=== PATIENT | male | born 1935 | race Hispanic/Latino ===

== ENCOUNTER 2018-01-04 09:15 | Inpatient (IN) | payer MEDICARE ==
--- NOTE | 2018-01-04 09:35 | ED PDOC ---
Arrival/HPI - General Chief Complaint: Weakness/Neurological Deficit Time Seen by Provider: 01/04/18 09:29 Historian: Patient, Family (Son) - History of Present Illness Narrative History of Present Illness (Text): 01/04/18 10:09 82 y/o male with no significant PMH presents to the ED with son c/o bilateral leg pain and increased confusion over the last 4 days. Patient describes leg discomfort as a "heaviness" with paresthesias and pain in the ankles and feet. Pt states the pain is chronic, but has worsened over the last 4 days. Followed by [facility] associated with Dr. Carrasco. Prescribed Methylprednisolone 4mg daily for the leg pain last week but pt has not taken the medication yet. Per the son, patient has been confused since yesterday morning, repeating phrases, and missing his mouth while eating dinner. Pt is having difficulty walking, unsure if secondary to pain or difficulty with balance. Took tylenol for pain yesterday without relief. No pain now, just "heaviness and tingling". Denies trauma/falls, headache, dizziness, weakness, numbness, paresthesias, fevers, chills, SOB, chest pain, cough, back pain, bowel/bladder incontinence, saddle anesthesia, calf swelling, calf tenderness, abdominal pain, N/V/D, dysuria, or any other associated symptoms. Past Medical History - Cardiac Hx Cardiac Disorders: No - Pulmonary Hx Respiratory Disorders: No - Neurological Hx Neurological Disorder: No - HEENT Hx HEENT Disorder: No - Renal Hx Renal Disorder: No - Hematological/Oncological Hx Blood Disorders: No - Integumentary Hx Dermatological Disorder: No - Musculoskeletal/Rheumatological Hx Back Pain: Yes - Psychiatric Hx Substance Use: No Family/Social History - Physician Review Nursing Documentation Reviewed: Yes Family/Social History: No Known Family HX Smoking Status: Smoker Currrent Status Unknown Hx Alcohol Use: Yes Frequency of alcohol use: Socially Hx Substance Use: No Allergies/Home Meds Allergies/Adverse Reactions: Allergies No Known Allergies Allergy (Verified 01/04/18 09:27) Home Medications: Home Meds Medication Instructions Recorded Confirmed Methylprednisolone [Medrol] 4 mg PO DAILY 01/04/18 01/04/18 Naproxen [Naprosyn] 500 mg PO Q12 01/04/18 01/04/18 Omeprazole Magnesium [Prilosec Otc] 20 mg PO DAILY 01/04/18 01/04/18 Review of Systems - Physician Review All systems were reviewed & negative as marked: Yes - Review of Systems Constitutional: Normal. absent: Fevers Eyes: Normal. absent: Vision Changes ENT: Normal. absent: Sore Throat, Sinus Congestion Respiratory: Normal. absent: SOB, Cough Cardiovascular: Normal. absent: Chest Pain, Palpitations, Syncope Gastrointestinal: Normal. absent: Abdominal Pain, Nausea, Vomiting Genitourinary Male: Normal. absent: Dysuria, Frequency Musculoskeletal: Arthralgias (bilateral legs). absent: Back Pain Skin: Normal. absent: Rash, Skin Lesions Neurological: Gait Changes. absent: Headache, Dizziness, Focal Weakness, Speech Changes, Facial Droop, Seizure Endocrine: Normal Hemo/Lymphatic: Normal Psychiatric: Normal Physical Exam Vital Signs Reviewed: Yes Temperature: Afebrile Blood Pressure: Normal Pulse: Regular Respiratory Rate: Normal Appearance: Positive for: Well-Appearing, Non-Toxic, Comfortable Pain Distress: None Mental Status: Positive for: Alert and Oriented X 3 - Systems Exam Head: Present: Atraumatic, Normocephalic. No: Contusion Pupils: Present: PERRL Extroacular Muscles: Present: EOMI Conjunctiva: Present: Normal Mouth: Present: Moist Mucous Membranes Neck: Present: Normal Range of Motion Respiratory/Chest: Present: Clear to Auscultation, Good Air Exchange. No: Respiratory Distress, Accessory Muscle Use Cardiovascular: Present: Regular Rate and Rhythm, Normal S1, S2. No: Murmurs Abdomen: No: Tenderness, Distention, Peritoneal Signs Back: Present: Normal Inspection Upper Extremity: Present: Normal Inspection, Normal ROM, NORMAL PULSES, Neurovascularly Intact, Capillary Refill < 2s. No: Cyanosis, Edema Lower Extremity: Present: Normal Inspection, NORMAL PULSES, Normal ROM, Neurovascularly Intact, Capillary Refill < 2 s, Other (subjective paresthesias to bilateral feet and ankles; sensation to light touch equal bilaterally). No: Edema, Tenderness, Swelling, Deformity, Temperature Abnormalties Neurological: Present: GCS=15, CN II-XII Intact (Difficulty following finger on testing of EOMI, bilaterally), Speech Normal, Motor Func Grossly Intact, Normal Sensory Function, Normal Cerebellar Funct, Gait Normal, Memory Normal Skin: Present: Warm, Dry, Normal Color. No: Rashes Psychiatric: Present: Alert, Oriented x 3, Normal Insight, Normal Concentration Medical Decision Making ED Course and Treatment: 09:35 Initial Plan: * CBC, CMP * Ammonia * Troponin * UA, culture * Head CT * Bilateral Lower Extremity Duplex * EKG * CXR Case discussed with Dr. Grant, who agrees with plan of care and recommends bilateral lower extremity duplex over any lumbar spine imaging at this time. CBC: Hgb 12.1, patient asymptomatic, no acute intervention necessary, otherwise wnl CMP: wnl Ammonia: wnl Troponin: neg UA: wnl Head CT: negative Duplex: negative for DVT CXR: no active disease Will admit patient for inpatient observation and further evaluation of leg pain and altered mental status. Discussed plan of care with patient and family, who agree and understand the necessity of inpatient observation. 12:[address] Marta Santiago, who accepted patient for inpatient observation for altered mental status and bilateral lower extremity pain. Impression: Bilateral Leg Pain Altered Mental Status - Lab Interpretations Narrative Lab Interpretation (Text): 01/04/18 19:36 01/04/18 10:25 01/04/18 10:25 Lab Results 01/04/18 10:25: PT 12.1, INR 1.05, APTT 26.8 01/04/18 10:25: Ammonia < 9 L 01/04/18 10:25: WBC 6.2, RBC 4.09, Hgb 12.1 L, Hct 36.9 L, MCV 90.2, MCH 29.6, MCHC 32.8, RDW 14.3, Plt Count 188, MPV 9.2, Gran % 65.5, Lymph % (Auto) 20.0 L, [place] % (Auto) 9.6 H, Eos % (Auto) 4.4, Baso % (Auto) 0.5, Gran # 4.04, Lymph # (Auto) 1.2, [place] # (Auto) 0.6, Eos # (Auto) 0.3, Baso # (Auto) 0.03 01/04/18 10:25: Sodium 137, Potassium 4.5, Chloride 106, Carbon Dioxide 27, Anion Gap 8 L, BUN 18, Creatinine 0.9, Est GFR ( Amer) > 60, Est GFR (Non-Af Amer) > 60, Random Glucose 104, Calcium 8.9, Total Bilirubin 0.8, AST 21, ALT 26, Alkaline Phosphatase 87, Total Creatine Kinase 85, Troponin I < 0.01, Total Protein 6.6, Albumin 3.7, Globulin 2.8, Albumin/Globulin Ratio 1.3 01/04/18 09:37: POC Glucose (mg/dL) 98 I have reviewed the lab results: Yes - RAD Interpretation Narrative RAD Interpretations (Text): 01/04/18 12:[address]: FINDINGS: HEMORRHAGE: No intracranial hemorrhage. BRAIN: No mass effect or edema. Chronic microvascular changes are seen as well as mild atrophy. No acute findings VENTRICLES: Unremarkable. No hydrocephalus. CALVARIUM: Unremarkable. PARANASAL SINUSES: Unremarkable as visualized. No significant inflammatory changes. MASTOID AIR CELLS: Unremarkable as visualized. No inflammatory changes. OTHER FINDINGS: None. IMPRESSION: No acute intracranial findings CXR: FINDINGS: LUNGS: No active pulmonary disease. PLEURA: No significant pleural effusion identified, no pneumothorax apparent. CARDIOVASCULAR: No aortic atherosclerotic calcification present. Normal cardiac size. No pulmonary vascular congestion. OSSEOUS STRUCTURES: No significant abnormalities. VISUALIZED UPPER ABDOMEN: Normal. OTHER FINDINGS: None. IMPRESSION: No active disease. Bilateral Venous Duplex Lower Extremity: FINDINGS: The visualized deep venous systems of both lower extremities are sonographically normal and compressible. Normal wave forms and augmentation are seen. There is no sonographic evidence for deep venous thrombosis in the visualized segments of both lower extremities. IMPRESSION: No sonographic evidence for deep venous thrombosis in the visualized segments of both lower extremities. [place]: Radiologist - EKG Interpretation EKG Interpretation (Text): 01/04/18 12:02 rate 70; NSR; normal interval; no ST elevations/depressions, T wave inversions, or other signs of ischemia Interpreted by ED Physician: Yes Type: 12 lead EKG Disposition/Present on Arrival - Present on Arrival Any Indicators Present on Arrival: No History of DVT/PE: No History of Uncontrolled Diabetes: No Urinary Catheter: No History of Decub. Ulcer: No History Surgical Site Infection Following: None - Disposition Have Diagnosis and Disposition been Completed?: Yes Diagnosis: Numbness and tingling of both legs, Altered mental status Disposition: HOSPITALIZED Disposition Time: 11:55 Patient Problems: Current Active Problems Problem Status Onset Numbness and tingling of both legs Acute Condition: STABLE
[2018-01-04 10:44] LABS: BASO # 0.03 K/mm3 (0.0-2.0); BASO % 0.5 % (0.0-3.0); EOS # 0.3 (0.0-0.7); EOS % 4.4 % (1.5-5.0); GRAN # 4.04 (1.4-6.5); GRAN % 65.5 % (50.0-68.0); HEMOGLOBIN 12.1 g/dL (14.0-18.0); LYMPH # 1.2 (1.2-3.4); MEAN CELL VOLUME 90.2 fl (80.0-105.0); MEAN CORPUSCULAR HEMOGLOBIN 29.6 pg (25.0-35.0); MEAN CORPUSCULAR HGB CONC 32.8 g/dl (31.0-37.0); MEAN PLATELET VOLUME 9.2 fl (7.0-11.0); MONO # 0.6 (0.1-0.6); MONO % 9.6 % (1.0-6.0); RBC 4.09 10^6/uL (3.5-6.1); RED CELL DISTRIBUTION WIDTH 14.3 % (11.5-14.5); WHITE BLOOD COUNT 6.2 10^3/uL (4.5-11.0)
[2018-01-04 10:45] LABS: ALB/GLOB RATIO 1.3 (1.1-1.8); ALBUMIN 3.7 g/dL (3.0-4.8); ALT/SGPT 26 U/L (7-56); AST/SGOT 21 U/L (17-59); BLOOD UREA NITROGEN 18 mg/dL (7-21); CALCIUM 8.9 mg/dL (8.4-10.5); GFR NON-AFRICAN AMERICAN > 60
[2018-01-04 10:57] LABS: TROPONIN I < 0.01 ng/mL
[2018-01-04 10:58] LABS: INR 1.05; PARTIAL THROMBOPLASTIN TIME 26.8 Seconds (25.1-36.5); PROTHROMBIN TIME 12.1 SECONDS (9.4-12.5)
--- NOTE | 2018-01-04 11:14 | US ---
HISTORY: Leg pain and swelling. Evaluate for DVT PHYSICIAN(S): Ray Burleson MD. TECHNIQUE: Duplex sonography and color-flow Doppler with graded compression were used to evaluate the deep venous systems of both lower extremities. FINDINGS: The visualized deep venous systems of both lower extremities are sonographically normal and compressible. Normal wave forms and augmentation are seen. There is no sonographic evidence for deep venous thrombosis in the visualized segments of both lower extremities. IMPRESSION: No sonographic evidence for deep venous thrombosis in the visualized segments of both lower extremities.
--- NOTE | 2018-01-04 11:34 | CT ---
Date of service: 01/04/2018 PROCEDURE: CT HEAD WITHOUT CONTRAST. HISTORY: altered mental status COMPARISON: None available. TECHNIQUE: Axial computed tomography images were obtained through the head/brain without intravenous contrast. Radiation dose: Total exam DLP = 902.94 mGy-cm. This CT exam was performed using one or more of the following dose reduction techniques: Automated exposure control, adjustment of the mA and/or kV according to patient size, and/or use of iterative reconstruction technique. FINDINGS: HEMORRHAGE: No intracranial hemorrhage. BRAIN: No mass effect or edema. Chronic microvascular changes are seen as well as mild atrophy. No acute findings VENTRICLES: Unremarkable. No hydrocephalus. CALVARIUM: Unremarkable. PARANASAL SINUSES: Unremarkable as visualized. No significant inflammatory changes. MASTOID AIR CELLS: Unremarkable as visualized. No inflammatory changes. OTHER FINDINGS: None. IMPRESSION: No acute intracranial findings
--- NOTE | 2018-01-04 11:39 | RAD ---
Date of service: 01/04/2018 HISTORY: altered mental status COMPARISON: No prior. FINDINGS: LUNGS: No active pulmonary disease. PLEURA: No significant pleural effusion identified, no pneumothorax apparent. CARDIOVASCULAR: No aortic atherosclerotic calcification present. Normal cardiac size. No pulmonary vascular congestion. OSSEOUS STRUCTURES: No significant abnormalities. VISUALIZED UPPER ABDOMEN: Normal. OTHER FINDINGS: None. IMPRESSION: No active disease.
--- NOTE | 2018-01-04 12:56 | CP.PCM.HP ---
<Britt Olivares - Last Filed: 01/04/18 13:33> History of Present Illness - History of Present Illness History of Present Illness: HISTORY & PHYSICAL NOTE FOR HOSPITALIST TEAM Britt Olivares PGY-1 82 y/o M with PMHx of HTN, GERD presents to ED with his with complaints of mild b/l leg tingling and heaviness that has been ongoing for several years around that ankle region, that is constant and non-radiating. He denies associated back pain, or shooting pain down the legs. He has a history "herniated disk surgery" involved his L4-L5 region in 2008 and has noticed the tingling since the surgery. He reports that he has had difficulty walking yesterday causes his kne es to buckle that caused him 7/10 severity pain however he doesn't report any pain currently. He reports he has had unsteady gait recently. He had recently seen his PMD who prescribed him methylprednisolone for the tingling, however he has not taken any of the medication. His son, who is present at bedside reports that pt was very anxious yesterday d/t the tingling and the pt was somewhat confused. Upon interview, son reports confusion has resolved, and patient is at his baseline. Upon interview, pt reports that he still has mild tingling in his ankle region, but doesn't report pain or discomfort. He denies fevers, chills, headache, dizziness, vision changes, urinary/bowel incontinence, numbness, chest pain, palpitations, shortness of breath, nausea, vomiting, constipation, diarrhea, dysuria, hematuria. PMHx: HTN, GERD All: Denies PSH: L4-L5 "herniated disk surgery" SH: Denies smoking, alcohol, illicit drug use Hosp: denies recently FH: Father: melanoma, Mother: denies Meds: Lotrel 5mg/10mg, prilosec, tessalon perles, naproxen, PMD: Dr. Carrasco, seen by HOSPITAL PHARMACY TECHNICIAN Pharmacy: [facility] Present on Admission - Present on Admission Any Indicators Present on Admission: No Review of Systems - Review of Systems Review of Systems: per HPI Past Patient History - Past Social History Smoking Status: Smoker Currrent Status Unknown - CARDIAC Hx Cardiac Disorders: No - PULMONARY Hx Respiratory Disorders: No - NEUROLOGICAL Hx Neurological Disorder: No - HEENT Hx HEENT Problems: No - RENAL Hx Chronic Kidney Disease: No - HEMATOLOGICAL/ONCOLOGICAL Hx Blood Disorders: No - INTEGUMENTARY Hx Dermatological Problems: No - MUSCULOSKELETAL/RHEUMATOLOGICAL Hx Back Pain: Yes - PSYCHIATRIC Hx Substance Use: No Meds Allergies/Adverse Reactions: Allergies Allergy/AdvReac Type Severity Reaction Status Date / Time No Known Allergies Allergy Verified 01/04/18 09:27 Physical Exam - Constitutional Appears: Well, Non-toxic, No Acute Distress - Head Exam Head Exam: NORMAL INSPECTION, NORMOCEPHALIC - Eye Exam Eye Exam: EOMI, Normal appearance - ENT Exam ENT Exam: Mucous Membranes Moist, Normal Exam - Neck Exam Neck exam: Positive for: Normal Inspection. Negative for: Meningismus - Respiratory Exam Respiratory Exam: Clear to Auscultation Bilateral, NORMAL BREATHING PATTERN - Cardiovascular Exam Cardiovascular Exam: REGULAR RHYTHM, +S1, +S2 - GI/Abdominal Exam GI & Abdominal Exam: Normal Bowel Sounds, Soft. absent: Distended - Extremities Exam Extremities exam: Positive for: normal inspection. Negative for: calf tenderness - Back Exam Back exam: NORMAL INSPECTION Additional comments: well healed midline vertical scar noted at L4-L5 region - Neurological Exam Neurological exam: Alert, CN II-XII Intact, Oriented x3, Reflexes Normal - Expanded Neurological Exam Expanded Cerebellar Function: Finger to Nose: Normal Upper motor neuron: Babinski Sign: Normal Sensory exam: Lower Extremity 2 Point Discrimination: Normal, Lower Extremity Light Touch: Normal, Upper Extremity 2 Point Discrimination: Normal, Upper Extremity Light Touch: Normal Neuro motor strength exam: Left Upper Extremity: 5, Right Upper Extremity: 5, Left Lower Extremity: 5, Right Lower Extremity: 5 Coma Scale Eye Opening: SPONTANEOUS Coma Scale Motor Response: OBEYS COMMANDS Coma Scale Verbal: Oriented Coma Scale Total: 15 - Psychiatric Exam Psychiatric exam: Normal Affect, Normal Mood - Skin Skin Exam: Dry, Intact, Warm Results - Vital Signs Recent Vital Signs: Last Vital Signs Temp 98.4 F 01/04/18 09:15 Pulse 68 01/04/18 10:29 Resp 18 01/04/18 10:29 BP 132/67 01/04/18 10:29 Pulse Ox 97 01/04/18 10:29 - Labs Result Diagrams: 01/04/18 10:25 01/04/18 10:25 Labs: Laboratory Results - last 24 hr 01/04/18 01/04/18 01/04/18 09:37 10:25 10:25 WBC 6.2 RBC 4.09 Hgb 12.1 L Hct 36.9 L MCV 90.2 MCH 29.6 MCHC 32.8 RDW 14.3 Plt Count 188 MPV 9.2 Gran % 65.5 Lymph % (Auto) 20.0 L [place] % (Auto) 9.6 H Eos % (Auto) 4.4 Baso % (Auto) 0.5 Gran # 4.04 Lymph # (Auto) 1.2 [place] # (Auto) 0.6 Eos # (Auto) 0.3 Baso # (Auto) 0.03 PT INR APTT Sodium 137 Potassium 4.5 Chloride 106 Carbon Dioxide 27 Anion Gap 8 L BUN 18 Creatinine 0.9 Est GFR ( Amer) > 60 Est GFR (Non-Af Amer) > 60 POC Glucose (mg/dL) 98 Random Glucose 104 Calcium 8.9 Total Bilirubin 0.8 AST 21 ALT 26 Alkaline Phosphatase 87 Ammonia Total Creatine Kinase 85 Troponin I < 0.01 Total Protein 6.6 Albumin 3.7 Globulin 2.8 Albumin/Globulin Ratio 1.3 01/04/18 01/04/18 10:25 10:25 WBC RBC Hgb Hct MCV MCH MCHC RDW Plt Count MPV Gran % Lymph % (Auto) [place] % (Auto) Eos % (Auto) Baso % (Auto) Gran # Lymph # (Auto) [place] # (Auto) Eos # (Auto) Baso # (Auto) PT 12.1 INR 1.05 APTT 26.8 Sodium Potassium Chloride Carbon Dioxide Anion Gap BUN Creatinine Est GFR ( Amer) Est GFR (Non-Af Amer) POC Glucose (mg/dL) Random Glucose Calcium Total Bilirubin AST ALT Alkaline Phosphatase Ammonia < 9 L Total Creatine Kinase Troponin I Total Protein Albumin Globulin Albumin/Globulin Ratio Assessment & Plan - Assessment and Plan (Free Text) Assessment: 82 y/o M with PMHx of HTN, GERD admitted for b/l LE tingling, unsteady gait and confusion likely secondary to anxiety Plan: B/l LE tingling Start gabapentin 100 mg tid Consult Neurology, appreciate recs Unsteady gait physical therapy eval & treat Fall precautions Confusion 2/2 anxiety: Resolved upon admission Confusion resolved as per son present at bedside Currently AxO x 4 Normal neurological exam F/u u/a to r/o toxic metabolic encephalopathy Chest xray negative Hx of hypertension Continue home lotrel 06/21 (amlodipine/benazeprilat) DVT: SCD Case seen, examined and discussed with attending physician, Dr. Santiago <Marta Santiago R - Last Filed: 01/04/18 16:45> Results - Vital Signs Recent Vital Signs: Last Vital Signs Temp 97.5 F L 01/04/18 14:57 Pulse 74 01/04/18 14:57 Resp 18 01/04/18 14:57 BP 126/59 L 01/04/18 14:57 Pulse Ox 97 01/04/18 14:57 - Labs Result Diagrams: 01/04/18 10:25 01/04/18 10:25 Labs: Laboratory Results - last 24 hr 01/04/18 01/04/18 01/04/18 09:37 10:25 10:25 WBC 6.2 RBC 4.09 Hgb 12.1 L Hct 36.9 L MCV 90.2 MCH 29.6 MCHC 32.8 RDW 14.3 Plt Count 188 MPV 9.2 Gran % 65.5 Lymph % (Auto) 20.0 L [place] % (Auto) 9.6 H Eos % (Auto) 4.4 Baso % (Auto) 0.5 Gran # 4.04 Lymph # (Auto) 1.2 [place] # (Auto) 0.6 Eos # (Auto) 0.3 Baso # (Auto) 0.03 PT INR APTT Sodium 137 Potassium 4.5 Chloride 106 Carbon Dioxide 27 Anion Gap 8 L BUN 18 Creatinine 0.9 Est GFR ( Amer) > 60 Est GFR (Non-Af Amer) > 60 POC Glucose (mg/dL) 98 Random Glucose 104 Calcium 8.9 Total Bilirubin 0.8 AST 21 ALT 26 Alkaline Phosphatase 87 Ammonia Total Creatine Kinase 85 Troponin I < 0.01 Total Protein 6.6 Albumin 3.7 Globulin 2.8 Albumin/Globulin Ratio 1.3 01/04/18 01/04/18 10:25 10:25 WBC RBC Hgb Hct MCV MCH MCHC RDW Plt Count MPV Gran % Lymph % (Auto) [place] % (Auto) Eos % (Auto) Baso % (Auto) Gran # Lymph # (Auto) [place] # (Auto) Eos # (Auto) Baso # (Auto) PT 12.1 INR 1.05 APTT 26.8 Sodium Potassium Chloride Carbon Dioxide Anion Gap BUN Creatinine Est GFR ( Amer) Est GFR (Non-Af Amer) POC Glucose (mg/dL) Random Glucose Calcium Total Bilirubin AST ALT Alkaline Phosphatase Ammonia < 9 L Total Creatine Kinase Troponin I Total Protein Albumin Globulin Albumin/Globulin Ratio Attending/Attestation - Attestation I have personally seen and examined this patient.: Yes I have fully participated in the care of the patient.: Yes I have reviewed all pertinent clinical information: Yes Notes (Text): Patient seen and examined by me with resident at 1PM. Case including HPI, physical exam, and assessment and plan discussed with resident. Agree with above with following additions/corrections. 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 He states that he has for the past few days had more difficulty walking. He states that he walks approximately 5-6 steps and feels like "my knees are buckling underneath me." Patient states that he normally does not use a cane or walker to ambulate. Patient states that he saw his primary care doctor's nurse practitioner recently who prescribed him a Medrol Dosepak to help with the tingling and heaviness. He states he did not take this medication. He tried naproxen at home with no relief. Patient states that this started after he had lumbar fusion in 2008. Patient's son also at bedside. Case discussed with patient's son with patient's permission. Per patient's son, patient was not confused yesterday. Patient was anxious and nervous about the worsening of his tingling and heaviness in his bilateral ankles and feet. Per son, patient's mental status is back to baseline today as he is feeling better. Patient is concerned about falling as his knees have been "buckling" for the past couple of days. Patient denies any chest pain or shortness of breath. No nausea, vomiting, or abdominal pain. No fevers or chills. No headaches or dizziness. No dysuria. No diarrhea or constipation. No lightheadedness. No change in vision. No current neck or back pain. 12 Point review of systems reviewed by me. Please see above HPI, all other systems are negative. Allergies: NKDA Physical exam: General: Awake and lying in bed in no acute distress HEENT: Normocephalic, atraumatic. Extraocular muscles intact, pupils equal and reactive, no scleral icterus. Oropharynx is pink and moist. Neck is supple. Hearing grossly intact. Ears and nose externally unremarkable. Cardiovascular: Regular rhythm. Normal S1 and S2. No rubs or gallops appreciated Pulmonary: Normal respiratory effort. No rhonchi, rales, or wheezing appreciated. Gastrointestinal: Soft, nondistended. Nontender. Positive bowel sounds all 4 quadrants. No guarding. Musculoskeletal: Moves all extremities. No calf tenderness. No CVA tenderness. No edema appreciated. Central nervous system: AAO x3, CN 2-12 grossly intact. Decreased sensation bilateral feet and ankles. Dermatologic: Skin warm and dry. Assessment and plan: Patient is an 82-year-old male with past medical history significant for hypertension, GERD, scarlet fever, herniated disc at L4-L5 status post spinal fusion, and bilateral lower ankle and feet tingling that presented to the emergency room with worsening of bilateral lower ankle and feet "tingling and heaviness." 1. Bilateral lower extremity Tingling/weakness. PT eval and treat. Neurology consulted, follow up recommednations. Started on Gabapentin. Fall precautions. Bilateral lower extremity venous dopplers negative for DVT. 2. Unsteady gait. PT eval and treat. Fall precautions. 3. Resolved confusion. Head CT per radiologist showed no acute intracranial findings. 4. Essential hypertension. Patient on Lotrel at home. Started on norvasc and lisinopril here. 5. GI/DVT prophylaxis. Protonix/SCDs 6. Patient is a full code Case discussed in detail with patient and patient's son at bedside with patient's permission regarding current diagnosis and treatment plan. All que stions answered.
--- NOTE | 2018-01-04 14:33 | CP.PCM.CON ---
History of Present Illness - History of Present Illness History of Present Illness: Neurology Consultation Note: Mr. Montes is an 82-year-old man with a past medical history of HTN, GERD presents to ED with his with complaints of chronic bilateral lower extremity tingling and heaviness that has been ongoing for several years and mostly affects his ankles. He has a history "herniated disk surgery" involved his L4- L5 region in 2008 and has noticed the tingling since the surgery. He complained of having some difficulty with ambulation due to the pain. Currently, the patient is comfortable. CT scan of the head was unremarkable. Neurology was consulted to assist with the management and care. Review of Systems - Constitutional Constitutional: As Per HPI - EENT Eyes: absent: As Per HPI, Blind Spots, Blurred Vision, Change in Vision, Decreased Night Vision, Diplopia, Discharge, Dry Eye, Exophthalmos, Floaters, Irritation, Itchy Eyes, Loss of Peripheral Vision, Pain, Photophobia, Requires Corrective Lenses, Sees Flashes, Spots in Vision, Tunnel Vision, Other Visual Disturbances, Loss of Vision, Other Ears: absent: As Per HPI, Decreased Hearing, Ear Discharge, Ear Pain, Tinnitus, Abnormal Hearing, Disequilibrium, Dizziness, Other Nose/Mouth/Throat: absent: As Per HPI, Epistaxis, Nasal Congestion, Nasal Discharge, Nasal Obstruction, Nasal Trauma, Nose Pain, Post Nasal Drip, Sinus Pain, Sinus Pressure, Bleeding Gums, Change in Voice, Dental Pain, Dry Mouth, Dysphagia, Halitosis, Hoarsness, Lip Swelling, Mouth Lesions, Mouth Pain, Odynophagia, Sore Throat, Throat Swelling, Tongue Swelling, Facial Pain, Neck Pain, Neck Mass, Other - Cardiovascular Cardiovascular: absent: As Per HPI, Acrocyanosis, Chest Pain, Chest Pain at Rest, Chest Pain with Activity, Claudication, Diaphoresis, Dyspnea, Dyspnea on E xertion, Edema, Irregular Heart Rhythm, Pain Radiating to Arm/Neck/Jaw, Leg Edema, Leg Ulcers, Lightheadedness, Orthopnea, Palpitations, Paroxysmal Nocturnal Dyspnea, Pedal Edema, Radiating Pain, Rapid Heart Rate, Slow Heart Rate, Syncope, Other - Respiratory Respiratory: absent: As Per HPI, Cough, Dyspnea, Hemoptysis, Dyspnea on Exertion, Wheezing, Snoring, Stridor, Pain on Inspiration, Chest Congestion, Excessive Mucous Production, Change in Mucous Color, Pain with Coughing, Other - Gastrointestinal Gastrointestinal: absent: As Per HPI, Abdominal Pain, Belching, Bloating, Change in Bowel Habits, Change in Stool Character, Coffee Ground Emesis, Constipation, Cramping, Diarrhea, Dyspepsia, Dysphagia, Early Satiety, Excessive Flatus, Fecal Incontinence, Heartburn, Hematemesis, Hematochezia, Loose Stools, Melena, Nausea, Odynophagia, Temesmus, Vomiting, Other - Genitourinary Genitourinary: absent: As Per HPI, Change in Urinary Stream, Difficulty Urinating, Dysuria, Flank Pain, Hematuria, Pyuria, Nocturia, Urinary Incontinence, Urinary Frequency, Urinary Hesitance, Urinary Urgency, Voiding Freq/Small Amts, Freq UTI, Hx Renal/Bladder Calculi, Hx /Renal Surgery, Bladd er Distension, Other - Musculoskeletal Musculoskeletal: Muscle Weakness, Numbness, Tingling - Integumentary Integumentary: absent: As Per HPI, Acne, Alopecia, Bleeding Lesions, Change in Hair, Change in Nails, Change in Pigmentation, Changing Lesions, Dry Skin, Erythema, Furuncle, Hirsutism, Lesions, New Lesions, Non-Healing Lesions, Photosensitivity, Pruritus, Rash, Skin Pain, Skin Ulcer, Sores, Striae, Swelling, Unusual Bruising, Wounds, Jaundice, Other - Neurological Neurological: As Per HPI - Psychiatric Psychiatric: absent: As Per HPI, Abnormal Sleep Pattern, Anhedonia, Anxiety, Auditory Hallucinations, Behavioral Changes, Change in Appetite, Change in Libido, Confusion, Depression, Difficulty Concentrating, Hallucinations, Homic idal Ideation, Hopelessness, Irritability, Memory Loss, Mood Swings, Panic Attacks, Paranoia, Suicidal Ideation, Visual Hallucinations, Tactile Hallucinations, Other - Endocrine Endocrine: absent: As Per HPI, Change in Body Appearance, Change in Libido, Cold Intolorance, Deepening of Voice, Excessive Sweating, Fatigue, Flushing, Heat Intolorance, Increase in Ring/Shoe/Hat Size, Palpitations, Polydipsia, Polyphagia, Polyuria, Other Past Patient History - Past Social History Smoking Status: Smoker Currrent Status Unknown - CARDIAC Hx Cardiac Disorders: No - PULMONARY Hx Respiratory Disorders: No - NEUROLOGICAL Hx Neurological Disorder: No - HEENT Hx HEENT Problems: No - RENAL Hx Chronic Kidney Disease: No - HEMATOLOGICAL/ONCOLOGICAL Hx Blood Disorders: No - INTEGUMENTARY Hx Dermatological Problems: No - MUSCULOSKELETAL/RHEUMATOLOGICAL Hx Back Pain: Yes - PSYCHIATRIC Hx Substance Use: No Meds Allergies/Adverse Reactions: Allergies Allergy/AdvReac Type Severity Reaction Status Date / Time No Known Allergies Allergy Verified 01/04/18 09:27 - Medications Medications: Current Medications Amlodipine Besylate (Norvasc) 5 mg PO DAILY [facility] Gabapentin (Neurontin) 100 mg PO TID [facility]; Protocol Lisinopril (Zestril) 10 mg PO DAILY [facility] Pantoprazole Sodium (Protonix Ec Tab) 40 mg PO DAILY [facility] Physical Exam - Constitutional Appears: Well - Head Exam Head Exam: ATRAUMATIC, NORMAL INSPECTION, NORMOCEPHALIC - Eye Exam Eye Exam: EOMI, Normal appearance, PERRL Pupil Exam: NORMAL ACCOMODATION, PERRL - ENT Exam ENT Exam: Mucous Membranes Moist, Normal Exam - Neck Exam Neck exam: Positive for: Normal Inspection - Respiratory Exam Respiratory Exam: Clear to Auscultation Bilateral, NORMAL BREATHING PATTERN - Cardiovascular Exam Cardiovascular Exam: REGULAR RHYTHM, +S1, +S2 - GI/Abdominal Exam GI & Abdominal Exam: Normal Bowel Sounds, Soft. absent: Tenderness - Rectal Exam Rectal Exam: Deferred - Extremities Exam Extremities exam: Positive for: normal inspection - Back Exam Back exam: NORMAL INSPECTION - Neurological Exam Neurological exam: Abnormal Gait, Alert, CN II-XII Intact, Oriented x3, Reflexes Normal Additional comments: Sensation intact to LT/P/T. Wide-based gait, slow, some mild tremor on the left. - Psychiatric Exam Psychiatric exam: Normal Affect, Normal Mood - Skin Skin Exam: Dry, Intact, Normal Color, Warm Results - Vital Signs Recent Vital Signs: Last Vital Signs Temp 97.8 F 01/04/18 13:26 Pulse 74 01/04/18 13:26 Resp 18 01/04/18 13:26 BP 144/60 01/04/18 13:26 Pulse Ox 96 01/04/18 13:26 - Labs Result Diagrams: 01/04/18 10:25 01/04/18 10:25 Labs: Laboratory Results - last 24 hr 01/04/18 01/04/18 01/04/18 09:37 10:25 10:25 WBC 6.2 RBC 4.09 Hgb 12.1 L Hct 36.9 L MCV 90.2 MCH 29.6 MCHC 32.8 RDW 14.3 Plt Count 188 MPV 9.2 Gran % 65.5 Lymph % (Auto) 20.0 L Izard % (Auto) 9.6 H Eos % (Auto) 4.4 Baso % (Auto) 0.5 Gran # 4.04 Lymph # (Auto) 1.2 Izard # (Auto) 0.6 Eos # (Auto) 0.3 Baso # (Auto) 0.03 PT INR APTT Sodium 137 Potassium 4.5 Chloride 106 Carbon Dioxide 27 Anion Gap 8 L BUN 18 Creatinine 0.9 Est GFR ( Amer) > 60 Est GFR (Non-Af Amer) > 60 POC Glucose (mg/dL) 98 Random Glucose 104 Calcium 8.9 Total Bilirubin 0.8 AST 21 ALT 26 Alkaline Phosphatase 87 Ammonia Total Creatine Kinase 85 Troponin I < 0.01 Total Protein 6.6 Albumin 3.7 Globulin 2.8 Albumin/Globulin Ratio 1.3 01/04/18 01/04/18 10:25 10:25 WBC RBC Hgb Hct MCV MCH MCHC RDW Plt Count MPV Gran % Lymph % (Auto) Izard % (Auto) Eos % (Auto) Baso % (Auto) Gran # Lymph # (Auto) Izard # (Auto) Eos # (Auto) Baso # (Auto) PT 12.1 INR 1.05 APTT 26.8 Sodium Potassium Chloride Carbon Dioxide Anion Gap BUN Creatinine Est GFR ( Amer) Est GFR (Non-Af Amer) POC Glucose (mg/dL) Random Glucose Calcium Total Bilirubin AST ALT Alkaline Phosphatase Ammonia < 9 L Total Creatine Kinase Troponin I Total Protein Albumin Globulin Albumin/Globulin Ratio Assessment & Plan (1) Numbness and tingling of both legs Assessment and Plan: This could be related to lumbar spine disease. He does not have significant weakness, but states that the pain can sometimes cause his legs to buckle. An MRI of the lumbar spine is recommended. Peripheral neuropathy is likely, or radiculopathy. This can be treated with gabapentin 300 mg TID. Thank you for the consultation. Status: Acute
[2018-01-04] MEDS: Pantoprazole 40 mg EC Tab PO SCH (17:38)
[2018-01-04 18:05] LABS: URINE APPEARANCE CLEAR (CLEAR); URINE BILIRUBIN NEGATIVE (NEGATIVE); URINE BLOOD NEGATIVE (NEGATIVE); URINE COLOR YELLOW (YELLOW); URINE GLUCOSE (UA) NEGATIVE (NEGATIVE); URINE LEUKOCYTE ESTERASE NEGATIVE Leu/uL (NEGATIVE); URINE PROTEIN NEGATIVE mg/dL (<30 mg/dL)
--- NOTE | 2018-01-05 07:27 | CARD ---
APPROVED REPORT Date of service: 01/04/2018 EKG Measurement Heart [id number] <Conclusion> Normal sinus rhythm Normal ECG
[2018-01-05 07:38] LABS: BASO # 0.05 K/mm3 (0.0-2.0); BASO % 0.8 % (0.0-3.0); EOS # 0.3 (0.0-0.7); EOS % 4.8 % (1.5-5.0); GRAN # 4.05 (1.4-6.5); GRAN % 61.3 % (50.0-68.0); HEMOGLOBIN 11.8 g/dL (14.0-18.0); LYMPH # 1.5 (1.2-3.4); LYMPH % 22.7 % (22.0-35.0); MEAN CELL VOLUME 90.3 fl (80.0-105.0); MEAN CORPUSCULAR HEMOGLOBIN 29.4 pg (25.0-35.0); MEAN CORPUSCULAR HGB CONC 32.5 g/dl (31.0-37.0); MEAN PLATELET VOLUME 9.6 fl (7.0-11.0); MONO # 0.7 (0.1-0.6); MONO % 10.4 % (1.0-6.0); RBC 4.02 10^6/uL (3.5-6.1); RED CELL DISTRIBUTION WIDTH 14.3 % (11.5-14.5); WHITE BLOOD COUNT 6.6 10^3/uL (4.5-11.0)
[2018-01-05 08:01] LABS: ALB/GLOB RATIO 1.2 (1.1-1.8); ALBUMIN 3.2 g/dL (3.0-4.8); ALT/SGPT 22 U/L (7-56); AST/SGOT 21 U/L (17-59); BLOOD UREA NITROGEN 14 mg/dL (7-21); CALCIUM 8.6 mg/dL (8.4-10.5); GFR NON-AFRICAN AMERICAN > 60
--- NOTE | 2018-01-05 08:04 | CP.PCM.PN ---
<Britt Olivares - Last Filed: 01/06/18 14:12> Subjective - Date & Time of Evaluation Date of Evaluation: 01/05/18 Time of Evaluation: 08:01 - Subjective Subjective: INTERNAL MEDICINE PROGRESS NOTE FOR DR. MAZIN Olivares PGY-1 Pt seen and examined at bedside this am. No acute nursing events overnight. He is tolerating his diet well. He was evaluated by PT who recommend balance/gait training and likely spinal stabilization. 12 point ROS is negative this am Objective - Vital Signs/Intake and Output Vital Signs (last 24 hours): Temp Pulse Resp BP Pulse Ox 97.5 F L 74 18 130/60 97 01/04/18 14:57 01/04/18 17:39 01/04/18 14:57 01/04/18 17:39 01/04/18 14:57 Intake and Output: 01/05/18 01/05/18 06:59 18:59 Intake Total 480 Output Total 250 Balance 230 - Medications Medications: Current Medications Amlodipine Besylate (Norvasc) 5 mg PO DAILY [facility] Last Admin: 01/04/18 17:38 Dose: 5 mg Gabapentin (Neurontin) 300 mg PO TID [facility]; Protocol Lisinopril (Zestril) 10 mg PO DAILY [facility] Last Admin: 01/04/18 17:39 Dose: 10 mg Pantoprazole Sodium (Protonix Ec Tab) 40 mg PO DAILY [facility] Last Admin: 01/04/18 17:38 Dose: 40 mg - Labs Labs: 01/05/18 07:00 01/04/18 10:25 PT 12.1 SECONDS (9.4-12.5) 01/04/18 10:25 INR 1.05 01/04/18 10:25 APTT 26.8 Seconds (25.1-36.5) 01/04/18 10:25 - Constitutional Appears: Well, Non-toxic, No Acute Distress - Head Exam Head Exam: ATRAUMATIC, NORMAL INSPECTION - Eye Exam Eye Exam: EOMI, Normal appearance - ENT Exam ENT Exam: Mucous Membranes Moist, Normal Exam - Neck Exam Neck Exam: Normal Inspection - Respiratory Exam Respiratory Exam: Clear to Ausculation Bilateral, NORMAL BREATHING PATTERN - Cardiovascular Exam Cardiovascular Exam: REGULAR RHYTHM, +S1, +S2 - GI/Abdominal Exam GI & Abdominal Exam: Soft. absent: Tenderness - Extremities Exam Extremities Exam: Normal Inspection. absent: Calf Tenderness - Back Exam Back Exam: NORMAL INSPECTION - Neurological Exam Neurological Exam: Alert, Awake, Oriented x3 Neuro motor strength exam: Left Upper Extremity: 5, Right Upper Extremity: 5, Left Lower Extremity: 5, Right Lower Extremity: 5 - Psychiatric Exam Psychiatric exam: Normal Affect, Normal Mood - Skin Skin Exam: Dry, Intact, Warm Assessment and Plan - Assessment and Plan (Free Text) Assessment: 82-year-old male with past medical history significant for hypertension, GERD, scarlet fever, herniated disc at L4-L5 status post spinal fusion, and bilateral lower ankle and feet tingling that presented to the emergency room with worsening of bilateral lower ankle and feet "tingling and heaviness." Plan: B/l LE tingling/weakness PT evaluated pt. Reported that his proprioception is impaired, which is likely the reason for balance issues. He needs balance/gait training and likely spinal stabilization, as he's unsafe. He has been accepted to TCU Neurology saw pt. Believed numbness/tingling is d/t lumbar spine disease. Recommend lumbar MRI and can be treated with gabapentin 300mg tid Extremity u/s negative for DVT Unsteady gait PT approves for TCU Fall precautions Confusion 2/2 anxiety: Resolved upon admission Confusion resolved as per son present at bedside Currently AxO x 4 Normal neurological exam U/a, Chest xray negative. No signs of infection Hx of hypertension Continue home lotrel 06/21 (amlodipine/benazeprilat) DVT: SCD Pt is full code DVT/GI PPx: SCD/home protonix Case seen, examined and discussed with attending physician, Dr Santiago <Marta Santiago R - Last Filed: 01/06/18 19:57> Objective - Vital Signs/Intake and Output Vital Signs (last 24 hours): Temp Pulse Resp BP Pulse Ox 97.8 F 66 20 101/55 L 96 01/06/18 14:00 01/06/18 14:00 01/06/18 14:00 01/06/18 14:00 01/06/18 14:00 - Medications Medications: Current Medications Amlodipine Besylate (Norvasc) 5 mg PO DAILY [facility] Last Admin: 01/06/18 10:13 Dose: 5 mg Gabapentin (Neurontin) 300 mg PO TID [facility]; Protocol Last Admin: 01/06/18 17:46 Dose: 300 mg Ceftriaxone Sodium (Rocephin 1 Gram Ivpb) 1 gm in 100 mls @ 100 mls/hr IVPB DAILY [facility]; Protocol Last Admin: 01/06/18 10:32 Dose: 100 mls/hr Lisinopril (Zestril) 10 mg PO DAILY [facility] Last Admin: 01/06/18 10:09 Dose: 10 mg Pantoprazole Sodium (Protonix Ec Tab) 40 mg PO DAILY [facility] Last Admin: 01/06/18 10:09 Dose: 40 mg - Labs Labs: 01/05/18 07:00 01/05/18 07:00 PT 12.1 SECONDS (9.4-12.5) 01/04/18 10:25 INR 1.05 01/04/18 10:25 APTT 26.8 Seconds (25.1-36.5) 01/04/18 10:25 Attending/Attestation - Attestation I have personally seen and examined this patient.: Yes I have fully participated in the care of the patient.: Yes I have reviewed all pertinent clinical information, including history, physical exam and plan: Yes Notes (Text): Patient seen and examined by me with resident at 8:30AM on 01/05/18. Case including HPI, physical exam, and assessment and plan discussed with resident. Agree with above with following additions/corrections. Patient is an 82-year-old male with past medical history significant for hypertension, GERD, scarlet fever, herniated disc at L4-L5 status post spinal fusion, and bilateral lower ankle and feet tingling that presented to the emergency room with worsening of bilateral lower ankle and feet "tingling and heaviness." Patient states he is feeling about the same today. Still with the "tingling and heaviness" in his ankles and feet. Patient feels rehab will not help him. Discussed importance of physical therapy and rehab. Patient denies any chest pain or shortness of breath. No headaches or dizziness. No fevers or chills. No nausea, vomiting, or abdominal pain. No dysuria. Physical exam: General: Awake and lying in bed in no acute distress HEENT: Normocephalic, atraumatic. Extraocular muscles intact, pupils equal and reactive, no scleral icterus. Oropharynx is pink and moist. Neck is supple. Cardiovascular: Regular rhythm. Normal S1 and S2. No rubs or gallops appreciated Pulmonary: Normal respiratory effort. No rhonchi, rales, or wheezing appreciated. Gastrointestinal: Soft, nondistended. Nontender. Positive bowel sounds all 4 quadrants. Musculoskeletal: Moves all extremities. No calf tenderness. No CVA tenderness. No edema appreciated. Central nervous system: AAO x3, CN 2-12 grossly intact. Decreased sensation bilateral feet and ankles. Dermatologic: Skin warm and dry. Assessment and plan: Patient is an 82-year-old male with past medical history significant for hypertension, GERD, scarlet fever, herniated disc at L4-L5 status post spinal fusion, and bilateral lower ankle and feet tingling that presented to the emergency room with worsening of bilateral lower ankle and feet "tingling and heaviness." 1. Bilateral lower extremity tingling/weakness. PT recommends TCU. Patient currently refusing. Will discuss with patient's son. Neurology following, christiano mmendations appreicated. Continue Gabapentin. Continue fall precautions. Bilateral lower extremity venous dopplers negative for DVT. 2. Unsteady gait. PT recommends TCU. Patient currently refusing. Will discuss with son. 3. Blood culture positive for gram negative cayden. Follow up repeat blood cultur es. Patient afebrile, no leukocytosis. Will hold off on antibiotics until final results back 4. Resolved confusion. Head CT per radiologist showed no acute intracranial findings. ? secondary to bacteremia. One blood culture positive for gram negative rods. Patient afebrile. No leukocytosis. Follow up repeat blood cultures. 5. Essential hypertension. Patient on Lotrel at home. Started on norvasc and lisinopril here. 6. GI/DVT prophylaxis. Protonix/SCDs 7. Patient is a full code Patient changed to inpatient status as blood culture is positive and patient requires further work up. Patient also with unsteady gait and is a high fall risk and requires inpatient physical rehabilitation. Case discussed in detail with patient and patient's son at bedside with patient's permission regarding current diagnosis and treatment plan. All questions answered.
[2018-01-05] MEDS: Pantoprazole 40 mg EC Tab PO SCH (10:30)
--- NOTE | 2018-01-05 13:13 | MRI ---
Date of service: 01/04/2018 PROCEDURE: MR LUMBAR SPINE WITHOUT CONTRAST HISTORY: Pain and weakness in lower ext COMPARISON: None available. TECHNIQUE: Multiecho multiplanar sequences were performed through the lumbar spine without the use of intravenous contrast. FINDINGS: The current study reveals no acute compression fractures nor retropulsed fragments however of edematous changes seen along the mid and right lateral L3-L4 endplates consistent with type 1 discogenic sclerosis. Additionally, there is a very slight right lateral stature loss of the L3 and L4 segments.. Secondary levoscoliosis centered at the L3-L4 level noted as well. There does appear to be a transitional vertebral body that probably represents a sacralized L5 segment. T12-L1: There is disc desiccation however disc space height is relatively maintained. No disc herniation or significant disc bulge. Facets are hypertrophic. Central canal and exit foramina appear adequate. L1-2: There is disc desiccation, disc space narrowing with cortical endplate irregularity. Broad-based disc ridge complex also extends into the proximal inferior margins of both exit foramina of.. Facets are hypertrophic and flavum are also buckled. Bilateral lateral recess and central canal stenosis right greater than left. Exit foramina are stenotic bilaterally right greater than left. L2-3: Disc desiccation, disc space narrowing, cortical endplate irregularity with broad-based disc ridge complex. Facets are hypertrophic with buckled flavum.. Changes result in bilateral lateral recess and central canal stenosis. Exit foramina are narrowed bilaterally. L3-4: Disc desiccation, disc space narrowing with cortical endplate irregularity as well as aforementioned type 1 discogenic sclerosis. There is a small broad-based disc ridge complex that extends into the a proximal inferior margins of both exit foramina. Facets are hypertrophic and flavum are also buckled mild right greater than left. Changes result in bilateral lateral recess stenosis right greater than left. Central canal is also mildly narrowed. Exit foramina are quite stenotic on the right and moderately stenotic on the left L4-5: There is disc desiccation, disc space narrowing with cortical endplate irregularity and chronic appearing Schmorl's node changes. Small broad-based disc ridge complex extends into the proximal inferior margins of both exit foramina. Facets are hypertrophic and flavum are also buckled. There is resultant bilateral lateral recess and mild central canal stenosis. The exit foramina are quite stenotic bilaterally. L5-S1: There is disc desiccation. Disc space height relatively maintained. No disc herniation or significant disc bulge. OTHER FINDINGS: Conus terminates at approximately the mid to lower L1 level. IMPRESSION: No acute fractures. Type 1 discogenic sclerosis L3-L4 endplates. Multilevel degenerative spondylosis with varying degrees of mild to significant bilateral lateral recess and central canal stenosis. Multilevel moderate to significant bilateral foraminal stenosis as detailed above
[2018-01-06] MEDS: Pantoprazole 40 mg EC Tab PO SCH (10:09)
[2018-01-06] MEDS: cefTRIAXone 1 gm 1 GM/100 ML BAG IVPB SCH (10:32)
--- NOTE | 2018-01-06 14:17 | CP.PCM.PN ---
<Britt Olivares - Last Filed: 01/06/18 14:12> Subjective - Date & Time of Evaluation Date of Evaluation: 01/06/18 Time of Evaluation: 14:12 - Subjective Subjective: INTERNAL MEDICINE PROGRESS NOTE FOR DR. ANA Olivares PGY1 Pt seen and examined at bedside this am. No acute nursing events overnight. He reports his LE tingling has improved since starting gabapentin. He denies any urinary symptoms. He is AxO, does not appear confused. 12 point ROS is negative. Objective - Vital Signs/Intake and Output Vital Signs (last 24 hours): Temp Pulse Resp BP Pulse Ox 98.3 F 80 18 132/66 96 01/06/18 06:00 01/06/18 10:13 01/06/18 06:00 01/06/18 10:13 01/06/18 06:00 - Medications Medications: Current Medications Amlodipine Besylate (Norvasc) 5 mg PO DAILY [facility] Last Admin: 01/06/18 10:13 Dose: 5 mg Gabapentin (Neurontin) 300 mg PO TID [facility]; Protocol Last Admin: 01/06/18 14:06 Dose: 300 mg Ceftriaxone Sodium (Rocephin 1 Gram Ivpb) 1 gm in 100 mls @ 100 mls/hr IVPB DAILY [facility]; Protocol Last Admin: 01/06/18 10:32 Dose: 100 mls/hr Lisinopril (Zestril) 10 mg PO DAILY [facility] Last Admin: 01/06/18 10:09 Dose: 10 mg Pantoprazole Sodium (Protonix Ec Tab) 40 mg PO DAILY [facility] Last Admin: 01/06/18 10:09 Dose: 40 mg - Labs Labs: 01/05/18 07:00 01/05/18 07:00 PT 12.1 SECONDS (9.4-12.5) 01/04/18 10:25 INR 1.05 01/04/18 10:25 APTT 26.8 Seconds (25.1-36.5) 01/04/18 10:25 - Constitutional Appears: Well, Non-toxic, No Acute Distress - Head Exam Head Exam: NORMAL INSPECTION, NORMOCEPHALIC - Eye Exam Eye Exam: EOMI, Normal appearance - ENT Exam ENT Exam: Mucous Membranes Moist, Normal Exam - Neck Exam Neck Exam: Normal Inspection - Respiratory Exam Respiratory Exam: Clear to Ausculation Bilateral, NORMAL BREATHING PATTERN - Cardiovascular Exam Cardiovascular Exam: REGULAR RHYTHM, +S1, +S2 - GI/Abdominal Exam GI & Abdominal Exam: Soft. absent: Tenderness - Extremities Exam Extremities Exam: Normal Inspection. 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 Continue gabapentin 300mg tid PT evaluated pt. Reported that his proprioception is impaired, which is likely the reason for balance issues. He needs balance/gait training and likely spinal stabilization, as he's unsafe. He has been accepted to TCU Neurology saw pt. Believed numbness/tingling is d/t lumbar spine disease. Lumbar MRI revealed L3-L4 stenosis (please see report) Extremity u/s negative for DVT UTI U/a was negative urine culture growing gram (-) rods 1 set of blood cultures growing gram (-) rods Start rocephin IVPB Unsteady gait PT approves for TCU Fall precautions Confusion 2/2 anxiety: Resolved upon admission Confusion resolved as per son present at bedside Currently AxO x 4 Normal neurological exam U/a, Chest xray negative. No signs of infection Hx of hypertension Continue home lotrel 5/10 (amlodipine/benazeprilat) DVT/GI PPx: SCD/home protonix Dispo: Pt is refused physical therapy. Give outpatient PT prescription. d/c home tomorrow Case seen, examined and discussed with attending physician, Dr. Lao <Magdalena Lao - Last Filed: 01/08/18 15:56> Objective - Vital Signs/Intake and Output Vital Signs (last 24 hours): Temp Pulse Resp BP Pulse Ox 97.7 F 90 18 122/63 97 01/07/18 06:00 01/07/18 10:05 01/07/18 06:00 01/07/18 10:05 01/07/18 06:00 - Labs Labs: 01/05/18 07:00 01/05/18 07:00 PT 12.1 SECONDS (9.4-12.5) 01/04/18 10:25 INR 1.05 01/04/18 10:25 APTT 26.8 Seconds (25.1-36.5) 01/04/18 10:25 Attending/Attestation - Attestation I have personally seen and examined this patient.: Yes I have fully participated in the care of the patient.: Yes I have reviewed all pertinent clinical information, including history, physical exam and plan: Yes Notes (Text): 01/08/18 15:52 Attending note; Patient seen and examined with resident. Patient is alert and awake. Denies any fevers, chills. Denies any nausea, vomiting. Denies any urinary symptoms. Tolerating diet well. 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 Bilateral lower extremity tingling/weakness. PT recommends TCU. Patient currently refusing. Neurology evaluation appreicated. Continue Gabapentin. Continue fall precautions. Bilateral lower extremity venous dopplers negative for DVT. 2. Blood culture positive for gram negative cayden. Patient afebrile, no leukocytosis. Urine culture is also positive for gram-negative rods. Started on IV Rocephin. Pending identification and sensitivity. Patient is clinically stable. 3. Essential hypertension. Patient on Lotrel at home. Started on norvasc and lisinopril here. 4. GI/DVT prophylaxis. Protonix/SCDs Follow-up culture results. Upon discharge the patient will follow up with PMD . Patient will be followed by his PMD from tomorrow for further treatment plan/discharge plan.
[2018-01-07 07:46] VITALS: RESP 18; TEMP 97.7; O2SAT 97
[2018-01-07] MEDS: Pantoprazole 40 mg EC Tab PO SCH (10:03)
[2018-01-07] MEDS: cefTRIAXone 1 gm 1 GM/100 ML BAG IVPB SCH (10:06)
[2018-01-07 10:09] VITALS: BP 122/63; PULSE 90
--- NOTE | 2018-01-08 05:47 | DS ---
HISTORY OF PRESENT ILLNESS: An 82-year-old white male with history of back surgery, peripheral neuropathy, admitted to the hospital with confusion, disorientation. The patient, at this point, is ready for discharge. He does have 1 out of 2 blood cultures that were positive for a gram-negative, awaiting ID, but most likely a contaminant. He also had some Pseudomonas growing in his urine. Bladder scan was negative. He has been afebrile. He has had white count. White count 6.6, hemoglobin 11.8. BUN and creatinine are stable. His blood pressure 100/58, temperature 97.7. The patient is awake and alert. He is seen with his son in the room. He is on gabapentin, amlodipine, and Protonix. He received a dose of ceftriaxone and also on lisinopril. He will be kept on a dose of the quinolone at home for possible Pseudomonas coverage until final microbiology is available. His second repeat blood cultures were negative up to 48 hours. He did have a Klebsiella pneumoniae on one blood culture, possible contaminant, and it was a Klebsiella pneumoniae that was sensitive to all antibiotics including Cipro. His Pseudomonas in the urine turned out to be between 50,000 and 100,000 colonies, sensitive to Cipro. Also, the patient will be discharged home on Cipro and follow as an outpatient. The patient also, while in the hospital, had a head CT which was negative and chest x-ray was normal. Extremity ultrasound was negative. Consultation with Dr. Varner, lumbar spine of MRI. He is status post laminectomy, and there are no acute fractures. There is type 1 diskogenic sclerosis at L3-L4 and multilevel degenerative spondylosis with variant degrees of lateral recess and central canal stenosis. The patient is awake and alert, seen with his son. He is ambulating when he has less neuropathy with the start of his Neurontin. The patient will be discharged home in improved condition, on gabapentin 300 mg three times a day and Cipro 500 mg b.i.d. He will be seen as an outpatient on Sunday. FINAL DISCHARGE DIAGNOSES: Peripheral neuropathy, episode of confusion, urinary tract infection and diskogenic disease of lumbosacral spine. Tahir Carrasco MD
== END 2018-01-07 12:45 | disposition home or self-care (01) | DRG 74 ==
LOC: ED 09:15 → ERH 11:56 → 5RSO 13:47 → OBSVTOIN 01-05 08:14
PROVIDERS: ADMIT Hospitalist; ATTEND Internal Medicine
DX: G62.9 Polyneuropathy, unspecified (principal); N39.0 Urinary tract infection, site not specified; R41.0 Disorientation, unspecified; M51.27 Other intervertebral disc displacement, lumbosacral region; I10 Essential (primary) hypertension; K21.9 Gastro-esophageal reflux disease without esophagitis; M47.9 Spondylosis, unspecified; M48.061 Spinal stenosis, lumbar region without neurogenic claudication; Z80.8 Family history of malignant neoplasm of other organs or systems; Z91.81 History of falling; Z98.1 Arthrodesis status